=== PATIENT | male | born 1985 | race American Indian/Alaskan Native ===

== ENCOUNTER 2017-08-12 21:46 | Emergency (ER) | payer SELFPAY ==
[2017-08-12 22:18] VITALS: BP 129/83
== END 2017-08-13 04:00 | disposition left against medical advice (07) ==
LOC: ED 21:46
DX: R36.9 Urethral discharge, unspecified (principal); Z53.21 Procedure and treatment not carried out due to patient leaving prior to being seen by health care provider

== ENCOUNTER 2017-08-13 13:15 | Emergency (ER) | payer OTHER ==
[2017-08-13 13:32] VITALS: BP 135/86
[2017-08-13] MEDS ORDERED: ROCEPHIN IM ONE (16:39)
[2017-08-13] MEDS ORDERED: ZITHROMAX PO ONE (16:39)
[2017-08-13] MEDS ORDERED: XYLOCAINE 1% MPF 5 mL INFILTRATI ONE (16:39)
--- NOTE | 2017-08-13 16:45 | Emergency Department Report ---
ED Male HPI - General Chief complaint: Urogenital-Male Stated complaint: STD SCREENING Time Seen by Provider: 08/13/17 16:34 Source: patient Mode of arrival: Ambulatory Limitations: No Limitations - History of Present Illness Initial comments: PT c/o yellow penile discharge x 3 days. PT states he had some dysuria last night. PT states he had sex 1 month ago. Pt states did not use protection for the entire duration of sexual activity. PT denies other symptoms. PT states he is flying home to [place] later today and he wanted to be treated before he leaves. Complaint: penile discharge, dysuria -: Gradual, days(s) (3) Location: penis Consistency: intermittent Worsens with: urination denies other symptoms. denies: swelling, rash, fever, nausea/vomiting, incontinence - Related Data Sexually active: Yes Allergies Allergy/AdvReac Type Severity Reaction Status Date / Time No Known Allergies Allergy Verified 08/13/17 13:29 ED Review of Systems ROS: Stated complaint: STD SCREENING Other details as noted in HPI Comment: All other systems reviewed and negative Constitutional: denies: fever, malaise Eyes: denies: eye pain, eye discharge ENT: denies: throat pain Cardiovascular: denies: chest pain Gastrointestinal: denies: abdominal pain, vomiting Genitourinary: as per HPI, dysuria, discharge. denies: testicular pain, testicular mass Skin: denies: rash ED Past Medical Hx - Past Medical History Previous Medical History?: No - Surgical History Past Surgical History?: No - Social History Smoking Status: Current Some Day Smoker Substance Use Type: Alcohol ED Physical Exam - General Limitations: No Limitations General appearance: alert, in no apparent distress - Head Head exam: Present: atraumatic, normocephalic, normal inspection - Eye Eye exam: Present: normal appearance, PERRL, EOMI. Absent: conjunctival injection - ENT ENT exam: Present: normal exam, normal orophraynx, mucous membranes moist, normal external ear exam - Neck Neck exam: Present: normal inspection, full ROM - Respiratory Respiratory exam: Present: normal lung sounds bilaterally. Absent: respiratory distress, wheezes, chest wall tenderness - Cardiovascular Cardiovascular Exam: Present: regular rate, normal rhythm, normal heart sounds - GI/Abdominal GI/Abdominal exam: Present: soft. Absent: tenderness, guarding, rebound - Extremities Exam Extremities exam: Present: normal inspection, full ROM - Back Exam Back exam: Present: normal inspection, full ROM. Absent: tenderness, CVA tenderness (R), CVA tenderness (L), paraspinal tenderness, vertebral tenderness - Neurological Exam Neurological exam: Present: alert, oriented X3, normal gait - Psychiatric Psychiatric exam: Present: normal affect, normal mood - Skin Skin exam: Present: warm, dry, intact, normal color ED Course Vital Signs 08/13/17 13:30 Temperature 99.8 F H Pulse Rate 91 H Respiratory 20 Rate Blood Pressure 135/86 O2 Sat by Pulse 97 Oximetry - Reevaluation(s) Reevaluation #1: 08/13/17 16:47 PT aware of plan of care. PT instructed to refrain from sex for the next 7 days. PT encouraged to follow up [facility] PCP or his local health dept for full panel STD testing. PT has no questions at this time. Reevaluation #2: 08/13/17 18:07 I was told by nursing staff that pt walked out. He did not provide urine for GC/ CT testing. He did not wait for dc paperwork - Pulse Oximetry Interpretation Digit-Finger Initial Pulse Oximetry Readin Actions Taken: none ED Medical Decision Making - Differential Diagnosis std Critical Care Time: No Critical care attestation.: If time is entered above; I have spent that time in minutes in the direct care of this critically ill patient, excluding procedure time. ED Disposition Clinical Impression: Penile discharge Disposition: ELOPED Is pt being admited?: No Does the pt Need Aspirin: No Condition: Stable Instructions: Sexually Transmitted Diseases (ED), Safe Sex (ED) Referrals: PRIMARY CARE, [Primary Care Provider] - 3-5 Days Time of Disposition: 18:07
== END 2017-08-13 18:30 | disposition left against medical advice (07) ==
LOC: ED 13:15
DX: R36.9 Urethral discharge, unspecified (principal); F17.200 Nicotine dependence, unspecified, uncomplicated
CPT/HCPCS: 96372; 99282; J0696